=== PATIENT | male | born 1960 | race Caucasian/White ===

== ENCOUNTER 2018-10-27 21:00 | Emergency (ER) | payer OTHER, BC ==
[2018-10-27] MEDS: KETOROLAC 30 MG INJ IM (22:29)
== END 2018-10-28 00:43 | disposition home or self-care (01) ==
LOC: FTE 10-28 00:43
DX: S20.212A Contusion of left front wall of thorax, initial encounter (principal); W01.0XXA Fall on same level from slipping, tripping and stumbling without subsequent striking against object, initial encounter; Y92.9 Unspecified place or not applicable
CPT/HCPCS: 71046; 96372; 99284-25